=== PATIENT | female | born 1990 | race Caucasian/White ===

== ENCOUNTER 2020-01-18 08:39 | Emergency (ER) | payer OTHER ==
[~2020-01-18] VITALS: Ht 165.1 cm; Wt 70.5 kg
[2020-01-18 11:03] VITALS: BP 135/76
--- NOTE | 2020-01-18 12:30 | REP ---
FIRST TRIMESTER ULTRASOUND: Real-time sonographic evaluation of gravid uterus performed utilizing transabdominal and endovaginal technique. There is an intrauterine gestation sac containing a yolk sac and pole. The crown-rump length is 3 mm, corresponding to an estimated gestational age of 6 weeks. No heart motion is detected. There is no subchorionic hemorrhage. Complex cystic structure of the left ovary probably represents a corpus luteum, 1.9 cm in diameter. There is no evidence of ovarian torsion. This could still represent a very early viable intrauterine gestation even though heart motion is not detected at this time. demise cannot be diagnosed until a crown-rump length size of 7 mm with associated lack of heart motion. Recommend correlation with serial quantitaive beta hCG values as well as followup ultrasound. Electronically Signed by Avinash Hernandez MD 01/21/2020 09:47 P
== END 2020-01-18 11:06 | disposition home or self-care (01) ==
LOC: M ED 08:39
DX: O20.0 Threatened abortion (principal); Z3A.01 Less than 8 weeks gestation of pregnancy

== ENCOUNTER → 2020-01-20 | Outpatient (CLI) | payer OTHER | LOC: M LAB 10:09 | PROVIDERS: ATTEND Emergency Medicine | DX: O20.0 Threatened abortion (principal) ==